=== PATIENT | male | born 1950 | race African-American/Black ===

== ENCOUNTER 2025-03-21 15:47 | Outpatient (AMB) | payer MEDICARE, SELFPAY ==
--- OUTSIDE RECORDS SUMMARY | 2025-02-27 11:30 | XMS_ITS | Encounter Summary ---
Author Organization [facility] Address [address] [place] [address] Care Team Providers Care Pocket Maker Name Role Phone Rodrigo Branch Primary Care Provider [phone] [phone] Reason for Referral * Cardiac Stress Testing (Routine) - Closed Specialty Diagnoses / Procedures Referred By Contac t Referred To Contact Cardiology Diagnoses Ventricular tachycardia (CMS/HCC V24, CMS/HCC V28) Paroxysmal atrial fibrillation (CMS/HCC V24, CMS/HCC V28) Procedures Cardiac holter monitor (<= 48 hours) ND ECG EXTERNAL UP TO 48 HOURS RECORDING ND ECG EXTERNAL < 48 HOURS CONTINUOUS RECORDING/STORAGE R&I BY A PHYS/QHP ND EXTERNAL ECG UP TO 48 HRS INCL RECORDING SCANNING ANLYS W REPORT Vinayak Arredondo MD [address] [address] Phone: tel: fax: [facility] Referral ID Status Reason Start Date Expiration Date Visits Re quested Visits Authorized [id number] Closed 02/27/2025 02/27/2026 1 1 Reason for Visit * Reason Comments EP EVAL PER DR. GARY, AFIB MANAGEMENT * Consultation (Routine) - Authorized Specialty Diagnoses / Procedures Referred By Contac t Referred To Contact Cardiology Diagnoses Hyperparathyroidism (CMS/HCC V24) Obesity (BMI 30.0-34.9) Secondary hypertension Hyperlipidemia, unspecified hyperlipidemia type Type 2 diabetes mellitus with other diabetic kidney complication, with long-term current use of insulin ([facility] V24, [facility] V28) SOB (shortness of breath) Prediabetes Rodrigo Branch PA [address] [place] [address] Phone: tel: fax: [facility] Cardiology [facility] [address] [facility] [address] [place] [address] Phone: tel: fax: Referral ID Status Reason Start Date Expiration Date Visits Requested Visits Authorized [id number] Authorized Specialty Services Required 12/01/2024 11/30/2025 6 6 Encounter Details Date Type Department Care Team (Late st Contact Info) Description 02/27/2025 11:30 AM EDT Consult [facility] Cardiology [facility] [address] [facility] [address] [place] [phone] Vinayak Arredondo MD [address] [place] [address] [place] [phone] Ventricular tachycardia ([facility] V24, [facility] V28) (Primary Dx); Paroxysmal atrial fibrillation ([facility] V24, [facility] V28) Social History Tobacco Use Types Packs/Day Years Used Date Smoking Tobacco: Former Cigarettes 1 - 12/15/2012 Smokeless Tobacco: Never Alcohol Use Standard Drinks/Week Comments Not Currently 0 (1 standard drink = 0.6 oz pur e alcohol) Sex and Gender Information Value Date Recorded Sex Assigned at Male 04/30/2024 5:27 AM EDT Legal Sex Male 12:06 PM EDT Gender Identity Male 04/30/2024 5:27 AM EDT Sexual Orientation Choose not to disclose 2023 5:27 AM EDT documented as of this encounter Last Filed Vital Signs Vital Sign Reading Time Taken Comments Blood Pressure 136/62 02/27/2025 11:05 AM EDT Pulse 62 02/27/2025 11:05 AM EDT Temperature - - Respiratory Rate - - Oxygen Saturation 98% 02/27/2025 11:05 AM EDT Inhaled Oxygen Concentration - - Weight 87.1 kg (192 lb) 02/27/2025 11:05 AM EDT Height 182.9 cm (6') 02/27/2025 11:05 AM EDT Body Mass Index 26.04 02/27/2025 11:05 AM EDT documented in this encounter Ordered Prescriptions Prescription Sig Dispense Quantity Refills Last Filled Start Date End Date metoprolol succinate (TOPROL-XL) 50 mg 24 hr tablet Take 1 tablet (50 mg total) by mouth 1 (one) time each day. Do not crush or chew. 90 each 3 02/27/2025 documented in this encounter Progress Notes * Vinayak Arredondo MD - 02/27/2025 11:30 AM EDT Dear ELISEO Vargas: Thank you for requesting cardiology consultation on your patient, Vinayak Rand. As you know, this delightful 74-year-old gentleman with a history of paroxysmal atrial fibrillation hypertension and hyperlipidemia. He had episodes that were suggestive of seizure-like activity and he had a recentinpatient workup which was unrevealing. He had a 24-hour Holter monitor that demonstrated a run of wide-complex arrhythmia consistent with outflow tract VT that was rather long but self terminating. An echocardiogram was just completed that shows mild concentric LVH with a normal LVEF. There is no RV dysfunction and no advanced valvular disease. He is on metoprolol at 25 mg daily which she is tole rating well. He is anticoagulated with Eliquis for paroxysmal atrial fibrillation. I do not see anydocumented atrial fibrillation recently. His blood pressures have generally been in the 140s to 150range on lisinopril and metoprolol. He is asymptomatic without any obvious arrhythmia but his cognitive function may preclude the detailed history. Recent electrolyte panel was unremarkable. He does have renal dysfunction with a creatinine of 2.14. LFTs are normal. PAST MEDICAL HISTORY: Patient Active Problem List Diagnosis Date Noted Atrial fibrillation with RVR (CMS/HCC V24, CMS/HCC V28) 02/22/2025 Left ventricular hypertrophy 02/22/2025 Cognitive impairment 10/20/2023 Partial seizure ([facility] V24, [facility] V28) 10/20/2023 Unintended weight loss 10/20/2023 Pulse irregularity 04/20/2023 Bilateral renal cysts 12/22/2022 Vitamin B12 deficiency 12/03/2022 Hyperparathyroidism ([facility] V24) 06/23/2016 Microalbuminuria 03/23/2014 Type II diabetes mellitus with renal manifestations ([facility] V24, [facility] V28) 03/23/2014 Late effect of stroke 11/26/2012 Obesity (BMI 30.0-34.9) 01/03/2010 Hyperlipidemia 07/11/2005 Hypertension 07/11/2005 FAMILY HISTORY: No premature coronary disease or arrhythmic events F2 SOCIAL HISTORY: Social History Tobacco Use Smoking status: Former Current packs/day: 0.00 Types: Cigarettes Start date: 1970 Quit date: 12/15/2012 Years since quittin.2 Smokeless tobacco: Never Substance Use Topics Alcohol use: Not Currently ACTIVE MEDICATIONS: Outpatient Medications Marked as Taking for the 02/27/25 encounter (Consult) with Vinayak Arredondo MD Medication Sig Dispense Refill apixaban (ELIQUIS) 5 mg tablet Take 1 tablet (5 mg total) by mouth 2 (two) times a day. Take 5 mg by mouth 2 times daily. - Oral 180 tablet 3 aspirin 81 mg EC tablet Take by mouth. aspirin-dipyridamole (AGGRENOX) 25-200 mg per 12 hr capsule Take 1 capsule by mouth 2 (two) times aday. 180 capsule 3 atorvastatin (LIPITOR) 40 mg tablet Take 1 tablet (40 mg total) by mouth at bedtime. Take 1 Tablet by mouth daily. 90 tablet 3 citalopram (CeleXA) 10 mg tablet Take 1 tablet (10 mg total) by mouth 1 (one) time each day. 90 each 1 coenzyme Q-10 100 mg capsule Take 1 capsule (100 mg total) by mouth 1 (one) time each day. 90 capsule 3 cyanocobalamin (VITAMIN B-12) 1,000 mcg tablet Take 1 tablet (1,000 mcg total) by mouth 1 (one) time each day. Take 1 Tablet by mouth daily. 90 tablet 3 divalproex (DEPAKOTE ER) 250 mg 24 hr tablet Take 3 tablets (750 mg total) by mouth 1 (one) time each day in the evening. 270 tablet 3 insulin glargine,hum.rec.anlog (Basaglar KwikPen U-100 Insulin) 100 unit/mL (3 mL) injection pen Inject 29 Units under the skin at bedtime. 8.7 mL 11 lisinopril (PRINIVIL,ZESTRIL) 40 mg tablet Take 1 tablet (40 mg total) by mouth 1 (one) time each day. Take 1 Tablet by mouth daily. 90 tablet 3 metFORMIN XR (GLUCOPHAGE-XR) 500 mg 24 hr tablet Take 1 tablet (500 mg total) by mouth 2 (two) times a day. pantoprazole (PROTONIX) 40 mg EC tablet Take 1 tablet (40 mg total) by mouth 1 (one) time each day before breakfast. Take 1 Tablet by mouth daily. 90 tablet 3 [DISCONTINUED] metoprolol succinate (TOPROL-XL) 25 mg 24 hr tablet Take 1 tablet (25 mg total) by mouth 1 (one) time each day. Do not crush or chew. 30 each 11 ALLERGIES: No Known Allergies PHYSICAL EXAM: Vitals: 02/27/25 1105 BP: 136/62 Pulse: 62 SpO2: 98% Weight: 87.1 kg (192 lb) Height: 1.829 m (72 ) APPEARANCE: Alert and in no acute distress EYES: PERRL, conjunctiva and sclera normal NECK: Neck supple, 2+ carotid pulses, No bruits. HEART: RRR with normal S1 and S2, no murmurs, no gallops, no JVD appreciated LUNG: clear to auscultation ABDOMEN: Bowel sounds normoactive, no bruits, soft, non-tender, without organomegaly or palpable masses, no abdominal bruits EXTREMITIES: Extremities warm and well perfused without clubbing, cyanosis, or edema NEURO: Awake, alert and oriented x 3, Cranial nerves II-XII grossly intact SKIN: Skin color, texture, turgor normal. No rashes or lesions. PSYCH: Mood and affect are appopriate. MSK: Moves all extremities TESTING: Echocardiogram and Holter monitor reviewed Lab Results Component Value Date CHOL 99 01/09/2025 LDL 79 07/28/2023 HDL 44 01/09/2025 TRIG 54 01/09/2025 Lab Results Component Value Date NA 142 01/09/2025 K 4.2 01/09/2025 CO2 27 01/09/2025 CL 110 01/09/2025 BUN 32 (H) 01/09/2025 Lab Results Component Value Date WBC 10.4 01/09/2025 HGB 12.2 (L) 01/09/2025 HCT 38.3 (L) 01/09/2025 MCV 99.2 (H) 01/09/2025 ASSESSMENT/PLAN: Problem List Items Addressed This Visit None Visit Diagnoses Ventricular tachycardia (CMS/HCC V24, CMS/HCC V28) - Primary Relevant Medications metoprolol succinate (TOPROL-XL) 50 mg 24 hr tablet Other Relevant Orders Cardiac holter monitor (<= 48 hours) (Completed) Paroxysmal atrial fibrillation (CMS/HCC V24, CMS/HCC V28) Relevant Medications metoprolol succinate (TOPROL-XL) 50 mg 24 hr tablet Other Relevant Orders Cardiac holter monitor (<= 48 hours) (Completed) Orders Placed This Encounter Procedures Cardiac holter monitor (<= 48 hours) 1. Ventricular tachycardia 2. Paroxysmal atrial fibrillation 3. Primary hypertension This 74-year-old gentleman demonstrated an episode of likely outflow tract ventricular tachycardia on his Holter monitor. This appears to be asymptomatic although it is always hard to tell given his cognitive state. I am reassured by the very benign baseline ECG and the recent echocardiogram showing no significant structural heart disease. This would generally make a life- threatening ventricular arrhythmia very unlikely. I went through the possible treatments and monitoring avenues but would like to increase the metoprolol to 50 mg daily and repeat the Holter monitor. I would be comfortable with treating this with a beta-dory as they are often effective for outflow tract VT. We could always place an implantable loop recorder if we want to be more aggressive at monitoring or try an antiarrhythmic drug such as sotalol but this would require an inpatient period of my monitoring and I would like to reserve that for any evidence of symptomatic arrhythmia. Thank you for requesting cardiology consultation on this interesting patient. Sincerely, cc: Rodrigo Branch PA documented in this encounter Plan of Treatment Upcoming Encounters Date Type Department Care Team (Late st Contact Info) Description 04/26/2025 11:00 AM EDT Office Visit Adult [address] [phone] Rodrigo Branch PA [address] [place] [phone] 04/28/2025 11:00 AM EDT Office Visit [address] [phone] Monica Aburto PA [address] [place], [place] 09/20/2025 1:00 PM EDT Office Visit Nephrology - [address] [phone] Sd Nash MD [facility] [address] [place] [address] documented as of this encounter Results * CARDIAC HOLTER MONITOR (REPORT GENERATED IN HOUSE) (03/16/2025 9:22 AM EDT) Anatomical Region Laterality Modality Cardiac Diagnost ic Narrative 03/20/2025 2:53 PM EDT [facility] DI[facility]STIC [facility]ING DEPARTMENT [address] [facility], [id number], [place] [address] TEL: FAX: Type of test: 24 hour Holter Monitor Date of test: 03/16/25 Ordering provider: Vinayak Arredondo MD Reason for Test: Paroxysmal Atrial Fibrillation, [place] [facility] Senior Technical Trainer Findings: 1: Normal Sinus Rhythm with Sinus Bradycardia. 2: Heart rate range was 47- 96 bpm with an average of 60 bpm. Total time in Sinus Bradycardia was 15 hrs 59 mins. 3: Frequent PACs with occasional atrial pairs and atrial bi/trigeminy. Occasional PVCs with rare couplets. 4: No pauses noted. Longest R-R 1.7 sec. 5: Diary returned with no symptoms noted. 6: No Atrial Fibrillation noted. Impression: Normal sinus rhythm with an average heart rate of 60 bpm. Frequent premature atrial complexes with a atrial ectopic burden between 7 and 8%. Rare PVCs and no runs of ventricular tachycardia. No atrial fibrillation seen. us Vinayak Arredondo MD CV CARDIAC SERVICES PROCEDURES Final Result documented in this encounter Visit Diagnoses Diagnosis Ventricular tachycardia (CMS/HCC V24, CMS/HCC V28)- Primary Paroxysmal ventricular tachycardia Paroxysmal atrial fibrillation (CMS/HCC V24, CMS/HCC V28) Atrial fibrillation Ventricular tachycardia (CMS/HCC V24, CMS/HCC V28) Paroxysmal ventricular tachycardia Paroxysmal atrial fibrillation (CMS/HCC V24, CMS/HCC V28) Atrial fibrillation documented in this encounter Discontinued Medications Medication Sig Discontinue Reason Start Date End Da te sildenafiL (VIAGRA) 100 mg tablet Take one hour prior to intercourse. Maximum of one tab a day. Discontinued by another clinician 02/27/2025 varenicline (CHANTIX) 0.5 mg tablet Take 1 tablet (0.5 mg total) by mouth 2 (two) times a day. 05/03/2024 02/27/2025 insulin glargine (Lantus Solostar U-100 Insulin) 100 unit/mL (3 mL) injection pen Inject 29 Units under the skin at bedtime. Inject 29 Units into the skin every evening. Discontinued by another clinician 05/25/2024 02/27/2025 metoprolol succinate (TOPROL-XL) 25 mg 24 hr tablet Take 1 tablet (25 mg total) by mouth 1 (one) time each day. Do not crush or chew. Alternate therapy 01/26/2025 02/27/2025 documented as of this encounter Orders Outpatient Referral Count Last Ordered Date Fir st Ordered Date AMB REFERRAL TO CARDIAC ELECTROPHYSIOLOGY 1 02/27/2025 documented in this encounter Additional Health Concerns Assessment Noted Time PHQ-9 Depression Total Score: 0 05/25/20 7:03 AM EST A fall risk assessment has been complete d for the patient 11/16/2024 9:34 AM EDT documented as of this encounter Care Teams Pocket Maker Relationship Specialty Start Date End Date Rodrigo Branch PA [address] [place] [address] PCP - General Internal Medicine 11/23/20 documented as of this encounter
--- OUTSIDE RECORDS SUMMARY | 2025-03-16 09:30 | XMS_ITS | Encounter Summary ---
Author Organization [facility] Address [address] [place] [address] Care Team Providers Care Envelope Machine Adjuster Name Role Phone Rodrigo Branch Primary Care Provider [phone] [phone] Reason for Visit * Reason Comments 24 Hour Holter Monitor * Cardiac Stress Testing (Routine) - Closed Specialty Diagnoses / Procedures Referred By Contac t Referred To Contact Cardiology Diagnoses Ventricular tachycardia (CMS/HCC V24, CMS/HCC V28) Paroxysmal atrial fibrillation (CMS/HCC V24, CMS/HCC V28) Procedures Cardiac holter monitor (<= 48 hours) MA ECG EXTERNAL UP TO 48 HOURS RECORDING MA ECG EXTERNAL < 48 HOURS CONTINUOUS RECORDING/STORAGE R&I BY A PHYS/QHP MA EXTERNAL ECG UP TO 48 HRS INCL RECORDING SCANNING ANLYS W REPORT Vinayak Arredondo MD [address] [place] [address] Phone: tel: fax: [facility] Referral ID Status Reason Start Date Expiration Date Visits Re quested Visits Authorized [id number] Closed 02/27/2025 02/27/2026 1 1 Encounter Details Date Type Department Care Team (Latest Contact Info) Description 03/16/2025 9:30 AM EDT Ancillary Procedure [facility] [address] [place] [phone] Ventricular tachycardia (CMS/HCC V24, CMS/HCC V28); Paroxysmal atrial fibrillation (CMS/HCC V24, CMS/HCC V28) Social History Tobacco Use Types Packs/Day [...] AM EDT documented as of this encounter Plan of Treatment Upcoming Encounters Date Type Department Care Team (Late st Contact Info) Description 04/26/2025 11:00 AM EDT Office Visit Adult Medicine [address] [phone] Rodrigo Branch PA [address] [place] [phone] 04/28/2025 11:00 AM EDT Office Visit Adult Medicine [address] [phone] Monica Aburto PA [address] [place] [address] 09/20/2025 1:00 PM EDT Office Visit Nephrology [address] [phone] Sd Nash MD [address] [phone] documented as of this encounter Procedures Procedure Name Priority Date/Time Associated Diagnosis Comments CARDIAC HOLTER MONITOR (REPORT GENERATED IN HOUSE) Routine 03/16/2025 9:22 AM EDT Ventricular tachycardia (CMS/HCC V24, CMS/HCC V28) Paroxysmal atrial fibrillation (CMS/HCC V24, CMS/HCC V28) documented in this encounter Results * CARDIAC HOLTER MONITOR (REPORT GENERATED IN HOUSE) (03/16/2025 9:22 AM EDT) Anatomical Region Laterality Modality Cardiac Diagnost ic Narrative 03/20/2025 2:53 PM EDT [facility] DI[facility]ING DEPARTMENT [address] [place] [address], [place] [address] TEL: FAX: Type of test: 24 hour Holter Monitor Date of test: 03/16/25 Ordering provider: Vinayak Arredondo MD Reason for Test: Paroxysmal Atrial Fibrillation, VT [facility] Raw Shellfish Preparer Findings: 1: Normal Sinus Rhythm with Sinus [...] of ventricular tachycardia. No atrial fibrillation seen. Vinayak Arredondo MD CV CARDIAC SERVICES PROCEDURES Final Result documented in this encounter Visit Diagnoses Diagnosis Ventricular tachycardia (CMS/HCC V24, CMS/HCC V28) Paroxysmal ventricular tachycardia Paroxysmal atrial fibrillation (CMS/HCC V24, CMS/HCC V28) Atrial fibrillation documented in this encounter Additional Health Concerns Assessment Noted Time PHQ-9 Depression Total Score: 0 05/25/20 24 7:03 AM EST A fall risk assessment has been complete d for the patient 11/16/2024 9:34 AM EDT documented as of this encounter Care Teams Envelope Machine Adjuster Relationship Specialty Start Date End Date Rodrigo Branch PA [address] [place] [address] PCP - General Internal Medicine 11/23/20 documented as of this encounter
--- NOTE | 2025-03-21 15:58 | A.OFFVIS_ITS ---
Intake Visit Reasons: ENP: Cognitive Impairment Allergies No Known Allergies Allergy (Verified 03/15/25 08:37) HPI Comments Details: The patient is a 74-year-old male with hypertension, paroxysmal atrial fibrillation on Eliquis, and probably multiple ischemic infarct resulting in vascular dementia. More recently he developed seizure shaking type episodes and was initially given levetiracetam, which was changed to Depakote.. The onset of seizures was noted early last year with an initial significant event occurring during a shower, leading to hospitalization. He currently is managed on Depakote at 750 mg in the evening. His mobility is characterized by weakness in the right leg, attributed to previous strokes. There is a diagnosis of vascular dementia, which complicates both cognitive function and physical mobility. Medically, he has atrial fibrillation and hypertension, managed with Eliquis, aspirin, and Difadodilol, which has raised concerns regarding the risk of bleeding due to multiple anticoagulants. His had number of questions that were answered. Behavioral symptoms include persistent agitation, which occurs every other day, complicating caregiving efforts. Support includes a visiting nurse to assist in day-to-day activities and hygiene. The patient's previous workup included an inpatient evaluation that was unremarkable, a Holter monitor showed arrhythmias, and echocardiography demonstrated mild left ventricular hypertrophy. [facility] Medical History (Updated 03/21/25 @ 16:24 by Breezy Robbins MD) Vitamin B12 deficiency Type 2 diabetes mellitus Partial seizure Obesity Hypertension Hyperparathyroidism HLD (hyperlipidemia) Cognitive impairment Bilateral renal cysts Atrial fibrillation with RVR Review of Systems Const Details: - Neurological: Reports increased seizures; denies vision changes. - Musculoskeletal: Reports labored walking and right leg weakness. - Cardiovascular: Reports atrial fibrillation; denies chest pain or palpitations. - Psychiatric: Reports agitation and mood changes; denies hallucinations. - Gastrointestinal: Reports diarrhea; denies abdominal pain. - General: Reports episodes of stiffness, especially post-shower. Physical Exam Neuro Other: He was alert and awake mostly keeping quite but would answer questions in yes or no. He frequently got irritated or agitated. There was mild left-sided central facial weakness. He was in a wheelchair. He was able to use his arms and hands. Assessment & Plan Assessment & Plan (1) Vascular dementia: Code(s): F01.50 - Vascular dementia, unspecified severity, without behavioral disturbance, psychotic disturbance, mood disturbance, and anxiety Category: Medical Qualifiers: Dementia severity: severe Dementia behavioral or psychological symptom: with other behavioral disturbance Qualified Code(s): F01.C18 - Vascular dementia, severe, with other behavioral disturbance (2) Seizure disorder: Code(s): G40.909 - Epilepsy, unspecified, not intractable, without status epilepticus Category: Medical Plan Impression recommendations: 74 years old man who probably had ischemic strokes resulting in vascular dementia related to atrial fibrillation. His previous re cords and imaging were not available to confirm or corroborate. More recently, he has developed symptoms suggestive of seizure disorder and was taking Depakote 750 mg a day. His was here somewhat not sure why she was sent here. We had a long conversation about her situation and add tried to explain to her different aspect of his illness and management. My recommendation at this time is to try memantine 5 mg twice a day for cognitive/behavioral difficulties. As far as seizure disorder is concerned, Depakote was a reasonable choice, which can also help as a mood stabilizer. His preferred to continue with his previous neurologist in no follow-up appointment was made at this time. Coding Level of Care Code New Pt Level 5 (53695) Diagnoses Severe vascular dementia with other behavioral disturbance F01.C18 Dementia severity: severe Dementia behavioral or psychological symptom: with other behavioral disturbance Seizure disorder G40.909
--- OUTSIDE RECORDS SUMMARY | 2025-03-21 18:56 | XMS_ITS | Encounter Summary ---
Author Organization [facility] Address [address] [place] [address] Care Team Providers Care Associate Professor Plant Pathology Name Role Phone Rodrigo Branch Primary Care Provider [phone] Reason for Visit * Reason Onset Date Comments Fitting for DME 03/17/2025 Boost + Briefs Encounter Details Date Type Department Care Team (Late st Contact Info) Description 03/17/2025 Telephone Adult Medicine [address] [phone] Rodrigo Branch PA [address] [place] [address] [phone] Social History Tobacco Use Types Packs/Day Years [...] AM EDT documented as of this encounter Progress Notes * Robinson Amezcua - 03/17/2025 1:43 PM EDT DME REQUEST Name of Product: Vanilla boost Briefs Reason patient is asking for this supply? Mixed incontinence When completed: Fax to other office/MD/pharmacy at fax # [phone] Who is requested? Toño Is this a fax request?yes Have you told the patient it will take 7-10 days for completion of this request? No documented in this encounter Plan of Treatment Upcoming Encounters Date Type Department Care Team (Late st Contact Info) Description 04/26/2025 11:00 AM EDT Office Visit Adult Medicine [address] [phone] Rodrigo Branch PA [address] [place] [phone] 04/28/2025 11:00 AM EDT Office Visit Adult Medicine [address] [phone] Monica Aburto PA [address] [place] [address] 09/20/2025 1:00 PM EDT Office Visit Nephrology - [address] [phone] Sd Nash MD [address] [phone] documented as of this encounter Visit Diagnoses Not on filedocumented in this encounter Additional Health Concerns Assessment Noted Time PHQ-9 Depression Total Score: 0 05/25/20 7:03 AM EST A fall risk assessment has been complete d for the patient 11/16/2024 9:34 AM EDT documented as of this encounter Care Teams Associate Professor Plant Pathology Relationship Specialty Start Date End Date Rodrigo Branch PA [address] [place] [address] PCP - General Internal Medicine 11/23/20 documented as of this encounter
--- OUTSIDE RECORDS SUMMARY | 2025-03-21 18:56 | XMS_ITS | Clinical Summary ---
Author Organization Patient Business Ser [facility] Address [address] [place] [address] Care Team Providers Care Superintendent Marine Name Role Phone Rodrigo Branch Primary Care Provider [phone] Allergies No known active allergies Medications flash glucose scanning reader (FreeStyle [place] 2 [place]) misc 1 Units by Does not apply route as needed for Other (glucose monitoring). Active glucose blood test strip Use to check blood sugar twice daily Active flash glucose sensor (FreeStyle Cortney 2 Sensor) kit 1 Units by Does not apply route every 14 days. Active ONETOUCH DELICA LANCETS MISC Use to test blood sugar 3 times daily 020 Active pen needle, diabetic 31 gauge x 3/16 needle 1 Each by Does not apply route 4 times daily. 023 Active aspirin 81 mg EC tablet Take by mouth. Active glucose blood test strip Use as instructed 100 each 12 024 2024 Active freestyle (FreeStyle Lancets) 28 gauge lancets Use to check blood sugar daily 100 each 12 Active blood-glucose meter kit 1 each if needed (use to check blood sugar daily). 1 each 024 2024 Active blood sugar diagnostic (FreeStyle Lite Strips) test strip Use to check blood sugar daily 100 each 12 Active apixaban (ELIQUIS) 5 mg tablet Take 1 tablet (5 mg total) by mouth 2 (two) times a day. Take 5 mg by mouth 2 times daily. - Oral 180 tablet 3 Active coenzyme Q-10 100 mg capsule Take 1 capsule (100 mg total) by mouth 1 (one) time each day. 90 capsule 3 Active divalproex (DEPAKOTE ER) 250 mg 24 hr tablet Take 3 tablets (750 mg total) by mouth 1 (one) time each day in the evening. 270 tablet 3 024 Active pantoprazole (PROTONIX) 40 mg EC tablet Take 1 tablet (40 mg total) by mouth 1 (one) time each day before breakfast. Take 1 Tablet by mouth daily. 90 tablet 3 024 Active lisinopril (PRINIVIL,ZESTRIL ) 40 mg tablet Take 1 tablet (40 mg total) by mouth 1 (one) time each day. Take 1 Tablet by mouth daily. 90 tablet 3 025 Active cyanocobalamin (VITAMIN B-12) 1,000 mcg tablet Take 1 tablet (1,000 mcg total) by mouth 1 (one) time each day. Take 1 Tablet by mouth daily. 90 tablet 3 025 Active citalopram (CeleXA) 10 mg tabletIndications :Hyperparathyroid ism ([facility] V24),Obesity (BMI 30.0-34.9),Second bridgette hypertension,Hype rlipidemia, unspecified hyperlipidemia type,Type 2 diabetes mellitus with other diabetic kidney complication, with long-term current use of insulin ([facility] V24, [facility] V28),SOB (shortness of breath),Prediabet es Take 1 tablet (10 mg total) by mouth 1 (one) time each day. 90 each 1 025 Active aspirin-dipyridam ole (AGGRENOX) 25-200 mg per 12 hr capsule Take 1 capsule by mouth 2 (two) times a day. 180 capsule 3 025 Active metFORMIN XR (GLUCOPHAGE-XR) 500 mg 24 hr tablet Take 1 tablet (500 mg total) by mouth 2 (two) times a day. Active atorvastatin (LIPITOR) 40 mg tablet Take 1 tablet (40 mg total) by mouth at bedtime. Take 1 Tablet by mouth daily. 90 tablet 3 Active insulin glargine,hum.rec. anlog (Basaglar KwikPen U-100 Insulin) 100 unit/mL (3 mL) injection pen Inject 29 Units under the skin at bedtime. 8.7 mL 11 2025 Active metoprolol succinate (TOPROL-XL) 50 mg 24 hr tablet Take 1 tablet (50 mg total) by mouth 1 (one) time each day. Do not crush or chew. 90 each 3 Active sildenafiL (VIAGRA) 100 mg tablet Take one hour prior to intercourse. Maximum of one tab a day. 2024 Discontinued(D iscontinued by another clinician) varenicline (CHANTIX) 0.5 mg tablet Take 1 tablet (0.5 mg total) by mouth 2 (two) times a day. 024 2024 Discontinued insulin glargine (Lantus Solostar U-100 Insulin) 100 unit/mL (3 mL) injection pen Inject 29 Units under the skin at bedtime. Inject 29 Units into the skin every evening. 15 mL 11 024 2024 Discontinued(D iscontinued by another clinician) metoprolol succinate (TOPROL-XL) 25 mg 24 hr tablet Take 1 tablet (25 mg total) by mouth 1 (one) time each day. Do not crush or chew. 30 each 025 2024 Discontinued(A lternate therapy) Active Problems Problem Noted Date Diagnosed Date Atrial fibrillation with RVR (CMS/HCC V24, CMS/H CC V28) 02/22/2025 Left ventricular hypertrophy 02/22/2025 Cognitive impairment 10/20/2023 Partial seizure (CMS/HCC V24, CMS/HCC V28) 10/19 Unintended weight loss 10/20/2023 Pulse irregularity 04/20/2023 Bilateral renal cysts 12/22/2022 Vitamin B12 deficiency 12/03/2022 Hyperparathyroidism (CMS/HCC V24) 06/23/2016 Microalbuminuria 03/23/2014 Type II diabetes mellitus wi th renal manifestations ([facility] V24, [facility]/HCC V28) 03/23/2014 Late effect of stroke 11/26/2012 Overview (04/14/2024): Right hemiparesis with left visual field loss Obesity (BMI 30.0-34.9) 01/03/2010 Hyperlipidemia 07/11/2005 Hypertension 07/11/2005 Resolved Problems Problem Noted Date Diagnosed Date Resolved Date Stage 3a chronic kidney dise ase ([facility] V24, CMS/[facility] V28) 08/24/2020 09/07/2024 Encounters Date Type Department Care Team Description 03/17/2025 Telephone Adult Medicine [id number] [place], [place] [phone] Rodrigo Branch, PA 03/16/2025 9:30 AM EDT Ancillary Procedure [facility] Cardiology [facility] [address] [facility] [address] [place] [id number] Ventricular tachycardia ([facility]/HCC V24, CMS/HCC V28); Paroxysmal atrial fibrillation ([facility]/HCC V24, CMS/HCC V28) 03/08/2025 Telephone Adult Medicine [address] [phone] Rodrigo Branch, PA 02/27/2025 11:30 AM EDT Consult [facility] Cardiology [facility] [address] [facility] [address] [place] [address] Yobany Arredondo MD Ventricular tachycardia ([facility] V24, [facility]/HCC V28) (Primary Dx); Paroxysmal atrial fibrillation ([facility]/HCC V24, CMS/HCC V28) 02/03/2025 Telephone Adult Medicine [address] [phone] Rodrigo Branch, PA 01/30/2025 Telephone [facility] Cardiology [facility] [address] [place] [phone] Marine Mann MD 01/27/2025 11:00 AM EDT Ancillary Procedure [facility] Cardiology [facility] [address] [place] [address] Hyperparathyroidism ([facility]/HCC V24); Obesity (BMI 30.0-34.9); Secondary hypertension; Hyperlipidemia, unspecified hyperlipidemia type; Type 2 diabetes mellitus with other diabetic kidney complication, with long-term current use of insulin (CMS/HCC V24, CMS/HCC V28); SOB (shortness of breath); Prediabetes 01/26/2025 Telephone [facility] Cardiology [facility] [address] [place] [address] Marine Mann MD 01/25/2025 9:00 AM EDT Ancillary Procedure [facility] Cardiology [facility] [address] [place] [address] Hyperparathyroidism ([facility]/HCC V24); Cognitive impairment; Hyperlipidemia, unspecified hyperlipidemia type; Secondary hypertension; Late effect of stroke; Microalbuminuria; Type 2 diabetes mellitus with other diabetic kidney complication, with long-term current use of insulin (CMS/HCC V24, CMS/HCC V28); Partial seizure (CMS/HCC V24, CMS/HCC V28); Vitamin B12 deficiency; Palpitation 01/11/2025 10:19 AM EDT - 01/11/2025 11:59 PM EDT Hospital Encounter CT Scan [address] [phone] Hyperparathyroidism ([facility]/HCC V24); Cognitive impairment; Hyperlipidemia, unspecified hyperlipidemia type; Secondary hypertension; Late effect of stroke; Microalbuminuria; Type 2 diabetes mellitus with other diabetic kidney complication, with long-term current use of insulin (CMS/HCC V24, CMS/HCC V28); Partial seizure (CMS/HCC V24, CMS/HCC V28); Vitamin B12 deficiency; Palpitation; New onset headache Discharge Disposition: Home or Self Care 01/09/2025 11:00 AM EDT Office Visit Adult Medicine [address] [phone] Rodrigo Branch, PA Type 2 diabetes mellitus with other diabetic kidney complication, with long-term current use of insulin ([facility] V24, [facility] V28) (Primary Dx); Hyperparathyroidism ([facility] V24); Cognitive impairment; Hyperlipidemia, unspecified hyperlipidemia type; Secondary hypertension; Late effect of stroke; Microalbuminuria; Partial seizure (CMS/HCC V24, [facility] V28); Vitamin B12 deficiency; Palpitation; New onset headache; Mixed incontinence 12/26/2024 Telephone Adult Medicine [address] [phone] Rodrigo Branch PA 12/22/2024 Telephone Adult Medicine [address] [phone] Rodrigo Branch PA from Last 3 Months Immunizations Name Administration Dates Next Due H1N1 Inj Preservative Free 06/28/2009 Influenza trivalent, 0.5mL ( Fluad) 65yo and older 05/25/2024 Influenza trivalent, 0.5mL ( Fluzone High-dose) 65yo and older 04/08/2023,04/18/2019,03/22/2018,05/30 Influenza trivalent, with pr eservative (Fluzone; Afluria) 6mo and older 06/20/2016,04/11/2015,03/25/2013,03/31,03/20/2011,06/28/2009,05/17/2008 ,2005 Influenza, Unspecified 05/30/2017 Moderna Covid-19 Bivalent, O riginal + Ba.1 (Non-US Tradename Spikevax Bivalent) 08/02/2022 Pneumococcal conjugate 13 va lent (Prevnar 13, PCV13) 2mo and older 11/16/2017 Pneumococcal polysaccharide 23 valent (Pneumovax 23) 2yo and older 04/18/2019,2005 RSV, bivalent, protein subun it RSVpreF, 0.5mL, Preservative Free (ABRYSVO) 60yo and older or 32 through 36 wks of 09/26/2023 Td Tetanus diptheria (Tdvax) 7yo and older 07/22/2018 Tdap Tetanus diptheria acell ular pertussis (Boostrix; Adacel) 7yo and older 06/27/2008 Zoster recombinant (Shingrix ) 19yo and older 09/26/2023 Surgical History Surgery Date Site/Laterality Comments OTHER SURGICAL HISTORY PROCEDURE: DENIES PREVIOUS SURGERY COLONOSCOPY Apr 2015 PROCEDURE: HISTORICAL COLONOSCOPY; COMMENT: Polyps and hemorrhoids MULTIPLE TOOTH EXTRACTIONS PROCEDURE: HISTORICAL DENTAL EXTRACTION Medical History Medical History Date Comments Type II or unspecified type diabetes mellitus without mention of complication, not stated as uncontrolled 07/11/2005 DX:Type II or unspecified ty pe diabetes mellitus without mention of complication, not stated as uncontrolled Essential hypertension, benign 07/11/2005 D X:Essential hypertension, benign Other and unspecified hyperlipidemia 07/11/2005 DX:Other and unspecified hyperlipidemia Obesity, unspecified 01/03/2010 DX:Obesity, unspecified Type 2 diabetes mellitus, co ntrolled, with renal complications ([facility] V24, [facility] V28) 03/23/2014 DX:Type 2 diabetes mellitus, controlled, with renal complications ([facility]) Hypertension 07/11/2005 DX:Hypertension Nausea DX:Nausea Functional dyspepsia DX:Function al dyspepsia Cerebrovascular disease DX:Cereb rovascular disease Seizure ([facility] V24, [facility] V28) Stroke (cerebrum) ([facility] V 24, [facility] V28) Dementia ([facility] V24, [facility] V28) Diarrhea Difficulty walking Fever Family History Relation Name Status Comments Father adopted Mother Other adopted Social History Tobacco Use Types Packs/Day Years Used Date Smoking Tobacco: Former Cigarettes 1 - 12/15/2012 Smokeless Tobacco: Never Tobacco Cessation:Counseling Given: Not Answered Alcohol Use Standard Drinks/Week Comments Not Currently 0 (1 standard drink = 0.6 oz pur e alcohol) Sex and Gender Information Value Date Recorded Sex Assigned at Male 04/30/2024 5:27 AM EDT Legal Sex Male 12:06 PM EDT Gender Identity Male 04/30/2024 5:27 AM EDT Sexual Orientation Choose not to disclose 2023 5:27 AM EDT Obstetrics History Last Filed Vital Signs Vital Sign Reading Time Taken Comments Blood Pressure 136/62 02/27/2025 11:05 AM EDT Pulse 62 02/27/2025 11:05 AM EDT Temperature 36.7 C (98.1 F) 01/09/2025 11:14 AM EDT Respiratory Rate 15 01/09/2025 11:14 AM EDT Oxygen Saturation 98% 02/27/2025 11:05 AM EDT Inhaled Oxygen Concentration - - Weight 87.1 kg (192 lb) 02/27/2025 11:05 AM EDT Height 182.9 cm (6') 02/27/2025 11:05 AM EDT Body Mass Index 26.04 02/27/2025 11:05 AM EDT Plan of Treatment Upcoming Encounters Date Type Department Care Team (Late st Contact Info) Description 04/26/2025 11:00 AM EDT Office Visit Adult Medicine [address] [phone] Rodrigo Branch PA [address] [place] [phone] 04/28/2025 11:00 AM EDT Office Visit Adult Medicine [address] [phone] Monica Aburto PA [address] [place] [address] 09/20/2025 1:00 PM EDT Office Visit Nephrology - [address] [phone] Sd Nash MD [address] [phone] Health Maintenance Due Date Last Done Comments Medicare Annual Wellness Visit 03/26/2022 Social Influencers of Health Screening 03/26/2022 Zoster Vaccines (2 of 2) 11/21/2023 09/26/2023 Depression Screening 07/06/2024 05/25/2024, 10/20/19 24 COVID-19 Vaccine ( season) 2025 09/26/2023, 08/02/2022, 05/09/2021, Additional history exists Influenza Vaccine (#1) 2025 , 04/08/2023, 04/18/2019, Additional history exists Diabetes: Annual Foot Exam 05/10/2025 05/10/2024, Diabetes: Blood Sugar Control Test (HGBA1C) 07/12/2025 01/09/2025, 09/22/2024, 05/25/2024, Additional history exists Falls Risk Assessment 11/16/2025 11/16/2024, 024 Diabetes: Annual Urine Albumin-Creatinine Ratio (uACR) 01/09/2026 01/09/2025, 09/22/2024, 05/25/2024, Additional history exists Diabetes: Annual GFR (Glomerular Filtration Rate) 01/09/2026 01/09/2025, 09/22/2024, 05/25/2024, Additional history exists Hypertension/CHF/CAD Annual BMP Blood Test 01/09/2026 01/09/2025, 09/22/2024, 05/25/2024, Additional history exists Diabetes: Annual Retina Eye Exam 01/10/2026 01/10/2025, 01/09/2025, 09/28/2023 DTaP,Tdap,and Td Vaccines (3 - Td or Tdap) 07/22/2028 07/22/2018, 06/27/2008 Colorectal Cancer Screening: Colonoscopy 09/19/2029 09/20/2019 Cholesterol Screening (Lipid Panel) 01/09/2030 01/09/2025, 09/22/2024, 05/25/2024, Additional history exists Hepatitis C Screening Completed 01/04/2014 Pneumococcal Vaccine: 50+ Years Completed 04/18/2019, 11/16/2017, 2005 RSV Immunization Adult Patients Completed 09/26/2023 Abdominal Aortic Aneurysm (AAA) Screen Addressed 12/23/2023 Overridden with the intention of not completing the topic HIB Vaccines Aged Out No longer eligi ble based on patient's age to complete this topic HPV Vaccines Aged Out No longer eligi ble based on patient's age to complete this topic Hepatitis A Vaccines Aged Out No long er eligible based on patient's age to complete this topic Hepatitis B Vaccines Aged Out No long er eligible based on patient's age to complete this topic IPV Vaccines Aged Out No longer eligi ble based on patient's age to complete this topic MMR Vaccines Aged Out No longer eligi ble based on patient's age to complete this topic Meningococcal ACWY Vaccine Aged Out N o longer eligible based on patient's age to complete this topic Meningococcal B Vaccine Aged Out No l onger eligible based on patient's age to complete this topic RSV Immunization Patients Under 20 months Aged Out No longer eligible based on patient's age to complete this topic Varicella Vaccines Aged Out No longer eligible based on patient's age to complete this topic Procedures Procedure Name Priority Date/Time Associated Diagnosis Comments CARDIAC HOLTER MONITOR (REPORT GENERATED IN HOUSE) Routine 03/16/2025 9:22 AM EDT Ventricular tachycardia ([facility] V24, [facility] V28) Paroxysmal atrial fibrillation ([facility] V24, [facility] V28) TRANSTHORACIC ECHOCARDIOGRAM (TTE) COMPLETE Routine 01/27/2025 11:07 AM EDT Hyperparathyroidism ([facility] V24) Obesity (BMI 30.0-34.9) Secondary hypertension Hyperlipidemia, unspecified hyperlipidemia type Type 2 diabetes mellitus with other diabetic kidney complication, with long-term current use of insulin ([facility] V24, [facility] V28) SOB (shortness of breath) Prediabetes CARDIAC HOLTER MONITOR (REPORT GENERATED IN HOUSE) Routine 01/25/2025 9:07 AM EDT Hyperparathyroidism ([facility] V24) Cognitive impairment Hyperlipidemia, unspecified hyperlipidemia type Secondary hypertension Late effect of stroke Microalbuminuria Type 2 diabetes mellitus with other diabetic kidney complication, with long-term current use of insulin ([facility] V24, [facility] V28) Partial seizure ([facility] V24, CMS/HCC V28) Vitamin B12 deficiency Palpitation CT HEAD WO CONTRAST Routine 01/11/2025 1 0:32 AM EDT Hyperparathyroidism ([facility]/HCC V24) Cognitive impairment Hyperlipidemia, unspecified hyperlipidemia type Secondary hypertension Late effect of stroke Microalbuminuria Type 2 diabetes mellitus with other diabetic kidney complication, with long-term current use of insulin ([facility] V24, CMS/HCC V28) Partial seizure ([facility] V24, [facility]/HCC V28) Vitamin B12 deficiency Palpitation New onset headache EXTERNAL DIABETIC RETINA EYE EXAM 01/10/2025 CBC WITH AUTO DIFFERENTIAL Routine 01/09/2025 12:13 PM EDT Hyperparathyroidism ([facility] V24) Cognitive impairment Hyperlipidemia, unspecified hyperlipidemia type Secondary hypertension Late effect of stroke Microalbuminuria Type 2 diabetes mellitus with other diabetic kidney complication, with long-term current use of insulin ([facility] V24, [facility] V28) Partial seizure ([facility] V24, [facility] V28) Vitamin B12 deficiency LIPID PANEL WITH REFLEX TO DIRECT LDL Routine 01/09/2025 12:13 PM EDT Hyperparathyroidism ([facility] V24) Cognitive impairment Hyperlipidemia, unspecified hyperlipidemia type Secondary hypertension Late effect of stroke Microalbuminuria Type 2 diabetes mellitus with other diabetic kidney complication, with long-term current use of insulin ([facility] V24, [facility] V28) Partial seizure ([facility] V24, [facility] V28) Vitamin B12 deficiency MICROALBUMIN CREATININE URINE RATIO Routine 01/09/2025 12:13 PM EDT Hyperparathyroidism ([facility] V24) Cognitive impairment Hyperlipidemia, unspecified hyperlipidemia type Secondary hypertension Late effect of stroke Microalbuminuria Type 2 diabetes mellitus with other diabetic kidney complication, with long-term current use of insulin ([facility] V24, [facility] V28) Partial seizure ([facility] V24, [facility] V28) Vitamin B12 deficiency COMPREHENSIVE METABOLIC PANEL Routine 01/09/2025 12:13 PM EDT Hyperparathyroidism ([facility] V24) Cognitive impairment Hyperlipidemia, unspecified hyperlipidemia type Secondary hypertension Late effect of stroke Microalbuminuria Type 2 diabetes mellitus with other diabetic kidney complication, with long-term current use of insulin ([facility] V24, [facility] V28) Partial seizure ([facility] V24, [facility] V28) Vitamin B12 deficiency HEMOGLOBIN A1C Routine 01/09/2025 12:13 PM EDT Hyperparathyroidism ([facility] V24) Cognitive impairment Hyperlipidemia, unspecified hyperlipidemia type Secondary hypertension Late effect of stroke Microalbuminuria Type 2 diabetes mellitus with other diabetic kidney complication, with long-term current use of insulin ([facility]CC V24, [facility] V28) Partial seizure ([facility] V24, [facility]/HCC V28) Vitamin B12 deficiency PARATHYROID HORMONE INTACT Routine 01/09/2025 12:13 PM EDT Hyperparathyroidism ([facility]/HCC V24) Cognitive impairment Hyperlipidemia, unspecified hyperlipidemia type Secondary hypertension Late effect of stroke Microalbuminuria Type 2 diabetes mellitus with other diabetic kidney complication, with long-term current use of insulin ([facility] V24, [facility] V28) Partial seizure ([facility]/HCC V24, [facility]/HCC V28) Vitamin B12 deficiency VITAMIN B12 Routine 01/09/2025 12:13 PM EDT Hyperparathyroidism ([facility]/HCC V24) Cognitive impairment Hyperlipidemia, unspecified hyperlipidemia type Secondary hypertension Late effect of stroke Microalbuminuria Type 2 diabetes mellitus with other diabetic kidney complication, with long-term current use of insulin ([facility] V24, [facility] V28) Partial seizure ([facility] V24, [facility]/HCC V28) Vitamin B12 deficiency CBC AND DIFFERENTIAL Routine 01/09/2025 12:13 PM EDT Hyperparathyroidism ([facility] V24) Cognitive impairment Hyperlipidemia, unspecified hyperlipidemia type Secondary hypertension Late effect of stroke Microalbuminuria Type 2 diabetes mellitus with other diabetic kidney complication, with long-term current use of insulin ([facility] V24, [facility] V28) Partial seizure ([facility] V24, [facility]/HCC V28) Vitamin B12 deficiency VALPROIC ACID LEVEL, TOTAL Routine 01/09/2025 12:13 PM EDT Hospital discharge follow-up Gait instability Late effect of stroke Partial seizure ([facility]/HCC V24, [facility]/HCC V28) Hyperparathyroidism ([facility]/HCC V24) Secondary hypertension Viral syndrome THYROID STIMULATING HORMONE WITH REFLEX TO FREE T4 AND FREE T3 Routine 01/09/2025 12:13 PM EDT Hyperparathyroidism ([facility]/HCC V24) Cognitive impairment Hyperlipidemia, unspecified hyperlipidemia type Secondary hypertension Late effect of stroke Microalbuminuria Type 2 diabetes mellitus with other diabetic kidney complication, with long-term current use of insulin ([facility] V24, [facility] V28) Partial seizure ([facility] V24, [facility]/HCC V28) Vitamin B12 deficiency CULTURE URINE Routine 01/09/2025 12:13 PM EDT Hyperparathyroidism ([facility] V24) Obesity (BMI 30.0-34.9) Secondary hypertension Hyperlipidemia, unspecified hyperlipidemia type Type 2 diabetes mellitus with other diabetic kidney complication, with long-term current use of insulin ([facility] V24, [facility] V28) SOB (shortness of breath) Prediabetes ECG 12-LEAD TRACING ONLY Routine 01/09/2025 11:56 AM EDT Hyperparathyroidism ([facility] V24) Cognitive impairment Hyperlipidemia, unspecified hyperlipidemia type Secondary hypertension Late effect of stroke Microalbuminuria Type 2 diabetes mellitus with other diabetic kidney complication, with long-term current use of insulin ([facility] V24, [facility] V28) Partial seizure ([facility] V24, [facility] V28) Vitamin B12 deficiency DEPRESSION SCREENING Routine 10/20/2023 FALLS RISK ASSESSMENT Routine 10/20/2023 DIABETES FOOT EXAM Routine 12/03/2022 COLONOSCOPY Routine 09/20/2019 HEPATITIS C SCREENING Routine 01/04/2014 from Last 3 Months or Most Recently Relevant to Health Maintenance Results * CARDIAC HOLTER MONITOR (REPORT GENERATED IN HOUSE) (03/16/2025 9:22 AM EDT) Anatomical Region Laterality Modality Cardiac Diagnost ic Narrative 03/20/2025 2:53 PM EDT [facility] DIAGNOSTIC TESTING DEPARTMENT [address] [place] [address], [address] [address] TEL: FAX: Type of test: 24 hour Holter Monitor Date of test: 03/16/25 Ordering provider: Yobany Arredondo MD Reason for Test: Paroxysmal Atrial Fibrillation, VT PVCA Manager Nuclear Findings: 1: Normal Sinus Rhythm with Sinus [...] ventricular tachycardia. No atrial fibrillation seen. us Yobany Arredondo MD CV CARDIAC SERVICES PROCEDURES Final Result * (ABNORMAL) TRANSTHORACIC ECHOCARDIOGRAM (TTE) COMPLETE (01/27/2025 11:07 AM EDT) Left Atrium Minor [place] 5.7 cm CV PACS Left Atrium Major [place] 6.1 cm CV PACS LA Area Sys (A2C) 24 cm2 CV PACS LA Area Sys (A4C) 24 cm2 CV PACS LA Volume (BP) 84 mL CV PACS RA Area 15.1 cm2 CV PACS RA 2D Volume 41 mL CV PACS AV Mean Gradient 5 mmHg CV PACS Ao VTI 30.5 cm CV PACS AV Peak Memo 1.5 m/s CV PACS AV Peak Gradient 9 mmHg CV PACS AV Area Continuity Equation 2.7 cm2 CV PACS AV Area Peak Velocity 3.1 cm2 CV PACS Aortic Sinus Valsalva 4.0 cm CV PACS Ascending Aorta 3.8 cm CV PACS IVC Proximal 1.1 cm CV PACS IVSD 1.2(A) 0.6 - 1.0 cm CV PACS LVIDD 5.2 4.2 - 5.8 cm CV PACS LVIDS 2.9 2.5 - 4.0 cm CV PACS LVOT Diameter 2.4 cm CV PACS LVOT Mean Grad 2 mmHg CV PACS LVOT Peak VTI 18.4 cm CV PACS LVOT Mean Memo 0.6 m/s CV PACS LVOT Peak Memo 1.0 m/s CV PACS LVOT Peak Gradient 4 mmHg CV PACS LVPWD 1.3(A) 0.6 - 1.0 cm CV PACS MV E' Tissue Velocity Lateral 6 cm/s CV PACS MV E' Tissue Velocity Septal 5 cm/s CV PACS LVOT Area 4.5 cm2 CV PACS LVOT Stroke Volume 83 mL CV PACS E Wave Deceleration Time 303(A) 119 - 242 ms CV PACS MV Peak A Memo 0.80 m/s CV PACS MV Peak E Memo 0.50 m/s CV PACS PV Acceleration Time 120 ms CV PACS PV Acceleration Time 120 ms CV PACS RV Diastolic Basal Dimension 3.2 2.5 - 4.1 cm CV PACS RV S' 14 cm/s CV PACS TAPSE 23 mm CV PACS E/E' Ratio Septal 10 CV PACS E/E' Ratio Averaged 9 CV PACS Relative Wall Thickness ratio 0.50(A) 0.24 - 0.42 CV PACS LVOT:AV VTI Index 0.60 CV PACS FS 44 % CV PACS LV Mass 2D 271(A) 96 - 200 g CV PACS LVOT flow 271 mL/s CV PACS AV Velocity Ratio 0.69 CV PACS E/A Ratio 0.6 0.8 - 2.0 CV PACS E/E' Ratio Lateral 8 CV PACS BSA 2.08 m2 CV PACS LA Volume Index (BP) 40 mL/m2 CV PACS LVIDD Index 2.50 cm/m2 CV PACS LVIDS Index 1.39 cm/m2 CV PACS LV Mass Index 2D 127(A) 50 - 102 g/m2 CV PACS LVOT Stroke Index 0 mL/m2 CV PACS RA 2D Volume Index 20 18 - 32 mL/m2 CV PACS ANDERSON Index (VTI) 1.31 cm2/m2 CV PACS ANDERSON Index (Pk Memo) 1.49 cm2/m2 CV PACS Ascending Aorta Index 1.83 cm/m2 CV PACS Est. RA Pressure 3 mmHg CV PACS LVOT Cardiac Output 0.0 L/min CV PACS LVOT Cardiac Index 2.6 L/min/m2 CV PACS RV Free Wall Peak S' 14 cm/s CV PACS RA Major [place] 4.7 cm CV PACS RA Major [place] Index 2.3 2.1 - 2.7 cm/m2 CV PACS MV PHT 88 ms CV PACS AV Area 2D 3.1 cm2 CV PACS ANDERSON Index (2D) 1.49 cm2/m2 CV PACS Inferior Vena Cava Diameter At Expiration 1.1 cm CV PACS IVC Expiration Index 0.53 cm/m2 CV PACS AV Area Index 1.5 CV PACS Anatomical Region Laterality Modality Ultrasound Narrative 02/02/2025 5:31 PM EDT Left ventricle cavity size is normal. There is mild, concentric left ventricular hypertrophy. There is normal left ventricular regional wall motion. Left ventricular systolic function is in the normal range with an ejection fraction of 55-60%. Right ventricle cavity is normal. Right ventricular systolic function is normal. There is no hemodynamically significant valve disease. There is mild left atrial enlargement. Left Ventricle Left ventricle cavity size is normal. There is mild concentric hypertrophy. Systolic function is normal with an ejection fraction of 55-60%. There are no regional LV wall motion abnormalities. Indeterminate diastolic function. Left atrial pressure is inconclusive. Right Ventricle Right ventricle cavity appears normal. Systolic function is normal. Left Atrium Left atrium volume index is mildly increased. There is right to left atrial septal bowing. No clear PFO is noted however. Right Atrium Right atrium cavity is normal. IVC/SVC RA pressures is estimated to be 3 mmHg (IVC diameter <21 mm and decreases >50% during inspiration). Mitral Valve The leaflets are mildly thickened. There is mild annular calcification. There is trace regurgitation. There is no evidence of mitral valve stenosis. Tricuspid Valve The leaflets exhibit normal excursion. There is trace regurgitation. There is no evidence of tricuspid valve stenosis. Cannot assess RVSP. Aortic Valve The aortic valve is trileaflet. The leaflets are mildly calcified. There is trace regurgitation. There is no evidence of aortic valve stenosis. Pulmonic Valve Visualized portions of the pulmonic valve appear normal. There is trace pulmonic valve regurgitation. There is no evidence of pulmonic valve stenosis. Ascending Aorta The aortic root and ascending aorta are likely upper normal in size for age and body surface area. Pericardium Pericardium appears normal. Study Details Overall the study quality was adequate. Rodrigo GOMES CV ECHO PROCEDURES Final Result * CARDIAC HOLTER MONITOR (REPORT GENERATED IN HOUSE) (01/25/2025 9:07 AM EDT) Anatomical Region Laterality Modality Cardiac Diagnost ic Narrative 01/26/2025 4:53 PM EDT [facility] DIAGNOSTIC TESTING DEPARTMENT [address] [place] [address], [address] [address] TEL: FAX: Type of Test: 24 Hour Holter Monitor Date of Test: 01/25/2025 Ordering Provider: ELISEO Vargas Reason for Test: Hyperparathyroidism; Cognitive impairment; Hyperlipidemia, unspecified hyperlipidemia type; Secondary hypertension; Late effect of stroke; Microalbuminuria; Type 2 diabetes mellitus with other diabetic kidney complication, with long-term current use of insulin; Partial seizure; Vitamin B12 deficiency; Palpitation Findings: 1: Normal Sinus Rhythm. Average heart rate was 68 bpm. 2: Frequent PACs. Occasional atrial pairs, atrial bi/trigeminy, and atrial runs lasting up to 5 beats with rates up to 171 bpm. Overall atrial ectopic burden was 7.2% of all beats. 3: Occasional PVCs. Rare couplets/triplets and two runs of nonsustained VT with rates up to 162 bpm. Longest run of nonsustained VT lasted 41 beats; approximately 16 seconds in duration. Overall ventricular ectopic burden was 0.4%. 4: No significant pauses noted, longest R-R was 1.7 seconds at 4:47 AM. 5: Diary returned with an entry questioning feeling palpitations. EKG at that time showed Normal Sinus Rhythm with isolated PACs and PVCs. Heart rates were in the range of 84-89 bpm. Impression: 1. Episodes of nonsustained VT. The longest episode was 41 beats lasting approximately 16 seconds in duration. These were reportedly asymptomatic. In reviewing morphologies, the predominant morphology and the morphology of the longer runs of nonsustained VT appears to be an RV outflow tract with inferior axis and left bundle branch block appearance. 2. Frequent atrial ectopy as above. Overall atrial ectopic burden was 7.2% of all beats. 3. Patient's symptoms mainly correlated to sinus rhythm with isolated APCs or PVCs. Rodrigo GOMES CV CARDIAC SERVICES [facility] Final Result * CT Head wo Contrast (01/11/2025 10:32 AM EDT) Anatomical Region Laterality Modality Head and Neck Computed Tomogra phy 01/11/2025 10:3 4 AM EDT Impressions 01/11/2025 10:41 AM EDT No acute intracranial pathology. Unchanged chronic findings as described. -------- FINAL REPORT -------- Dictated By: Damaris Beebe Dictated Date: 01/11/2025 10:34 ET Assigned Physician: Damaris Beebe Reviewed and Electronically Signed By: Damaris Beebe Signed Date: 01/11/2025 10:41 ET Workstation ID: [id number] Transcribed By: Self Edit Transcribed Date: 01/11/2025 10:34 ET Narrative 01/11/2025 10:[address] HEAD WO CONTRAST HISTORY: Chronic headache. New features or increased frequency headache. New onset. History stroke. TECHNIQUE: Contiguous axial images were obtained from the skull base to the vertex without contrast. PRIOR STUDIES: CT brain 04/20/2023. FINDINGS: There is no acute intracranial hemorrhage. The reece/white matter differentiation is preserved. Old left occipital and left temporal lobe infarcts are unchanged. Extensive decreased attenuation of the periventricular and deep white matter bilaterally, consistent with chronic small vessel ischemic disease, is unchanged. Prominent sulci consistent with age-related atrophy are not significantly changed. The basal cisterns are patent. There is no mass effect or midline shift. There are no intra or extra-axial fluid collections identified. No skull fractures are seen. The visualized paranasal sinuses and mastoid air cells are clear. There appears to be an empty sella. Procedure Note Damaris Beebe MD - 01/11/2025 CT HEAD WO CONTRAST HISTORY: Chronic headache. New features or increased frequency headache.New onset. History stroke. TECHNIQUE: Contiguous axial images were obtained from the skull base tothe vertex without contrast. PRIOR STUDIES: CT brain 04/20/2023. FINDINGS: There is no acute intracranial hemorrhage. The reece/white matterdifferentiation is preserved. Old left occipital and left temporal lobe infarcts are unchanged.Extensive decreased attenuation of the periventricular and deep whitematter bilaterally, consistent with chronic small vessel ischemic disease,is unchanged. Prominent sulci consistent with age-related atrophy are not significantlychanged. The basal cisterns are patent. There is no mass effect or midline shift.There are no intra or extra-axial fluid collections identified. No skull fractures are seen. The visualized paranasal sinuses and mastoidair cells are clear. There appears to be an empty sella. IMPRESSION: No acute intracranial pathology. Unchanged chronic findings asdescribed. -------- FINAL REPORT -------- Dictated By: Damaris Beebe Dictated Date: 01/11/2025 10:34 ET Assigned Physician: Damaris Beebe Reviewed and Electronically Signed By: Damaris Beebe Signed Date: 01/11/2025 10:41 ET Workstation ID: [id number] Transcribed By: Self Edit Transcribed Date: 01/11/2025 10:34 ET Rodrigo GOMES IMG CT PROCEDURES Final R esult * External Diabetic Retina Eye Exam Report (01/10/2025) Anatomical Region Laterality Modality Ultrasound Provider [facility] US PROCEDURES Final Result * Thyroid stimulating hormone with reflex to free t4 and free t3 (01/09/2025 12:13 PM EDT) [facility] TSH 0.92 0.40 - 4.00 mcIU/mL LAB CHEMISTRY METHOD 01/09/2025 4:54 PM EDT [facility] Blood Venous blood specimen / Unknown Venipuncture / Unknown 01/09/2025 12:13 PM EDT 01/09/2025 12:13 PM EDT Rodrigo GOMES LAB BLOOD ORDERABLES Marina l Result [facility] [address] [place] [address], [place] [phone] * Lipid panel with reflex to direct LDL (01/09/2025 12:13 PM EDT) [facility] Cholesterol 99 0 - 200 mg/dL LAB CHEMISTRY METHOD 01/09/2025 3:29 PM EDT [facility] Triglycerides 54 0 - 150 mg/dL LAB CHEMISTRY METHOD 01/09/2025 3:29 PM EDT [facility] HDL 44 >=40 mg/dL LAB CHEMISTRY METHOD 01/09/2025 3:29 PM EDT [facility] LDL Calculated 44 0 - 100 mg/dL LAB CHEMISTRY METHOD 01/09/2025 3:29 PM EDT [facility] VLDL Cholesterol Femi 10.8 mg/dL LAB CHEMISTRY METHOD 01/09/2025 3:29 PM EDT [facility] Non HDL Chol. (LDL+VLDL) 55 <145 mg/dL LAB CHEMISTRY METHOD 01/09/2025 3:29 PM EDT [facility] Chol/HDL Ratio 2.3 0.0 - 4.4 LAB CHEMISTRY METHOD 01/09/2025 3:29 PM EDT [facility] Blood Venous blood specimen / Unknown Venipuncture / Unknown 01/09/2025 12:13 PM EDT 01/09/2025 12:13 PM EDT us Rodrigo GOMES LAB BLOOD ORDERABLES Marina l Result [facility] [address] [place] [address], * (ABNORMAL) CBC auto differential (01/09/2025 12:13 PM EDT) [facility] WBC 10.4 4.8 - 10.8 K/mcL LAB HEMETOLOGY METHOD 01/09/2025 2:45 PM EDT [facility] RBC 3.90(L) 4.50 - 5.50 M/mcL LAB HEMETOLOGY METHOD 01/09/2025 2:45 PM EDT [facility] Hemoglobin 12.2(L) 13.5 - 17.5 g/dL LAB HEMETOLOGY METHOD 01/09/2025 2:45 PM EDT [facility] Hematocrit 38.3(L) 42.0 - 54.0 % LAB [facility]Y [facility] MCV 99.2(H) 79.0 - 98.0 FL LAB HEMETOLOGY METHOD 01/09/2025 2:45 PM EDT [facility] MCH 31.6 27.0 - 32.0 pcg LAB HEMETOLOGY METHOD 01/09/2025 2:45 PM EDT [facility] MCHC 31.9(L) 32.0 - 37.0 g/dL LAB HEMETOLOGY METHOD 01/09/2025 2:45 PM [facility] RDW 13.2 11.0 - 15.0 % LAB HEMETOLOGY METHOD 01/09/2025 2:45 PM EDT [facility] Platelets 238 130 - 400 K/mcL LAB HEMETOLOGY METHOD 01/09/2025 2:45 PM EDT [facility] MPV 12.8(H) 7.0 - 11.0 FL LAB HEMETOLOGY METHOD 01/09/2025 2:45 PM [facility] NRBC 0.0 <1.0 % LAB HEMETOLOGY METHOD 01/09/2025 2:45 PM EDT [facility] NRBC Absolute 0.00 <0.10 K/mcL LAB HEMETOLOGY METHOD [facility] Neutrophils Relative 70.3 % LAB HEMETOLOGY METHOD [facility] Lymphocytes Relative 20.7 % LAB HEMETOLOGY METHOD 01/09/2025 2:45 PM EDT [facility] Monocytes Relative 7.1 % LAB HEMETOLOGY METHOD 01/09/2025 2:45 PM EDT [facility] Eosinophils Relative 1.3 % LAB HEMETOLOGY METHOD 01/09/2025 2:45 PM EDT [facility] Basophils Relative 0.2 % LAB HEMETOLOGY METHOD 01/09/2025 2:45 PM EDT [facility] Immature Granulocytes Relative 0.4 % LAB HEMETOLOGY METHOD 01/09/2025 2:45 PM EDT [facility] Neutrophils Absolute 7.29(H) 1.50 - 7.00 K/mcL LAB HEMETOLOGY METHOD 01/09/2025 2:45 PM EDT [facility] Lymphocytes Absolute 2.15 1.00 - 5.00 K/mcL LAB HEMETOLOGY METHOD 01/09/2025 2:45 PM EDT [facility] Monocytes Absolute 0.74 0.20 - 1.00 K/mcL LAB HEMETOLOGY METHOD 01/09/2025 2:45 PM EDT [facility] Eosinophils Absolute 0.14 0.00 - 0.50 K/mcL LAB HEMETOLOGY METHOD 01/09/2025 2:45 PM EDT [facility] Basophils Absolute 0.02 0.00 - 0.20 K/mcL LAB HEMETOLOGY METHOD 01/09/2025 2:45 PM EDT [facility] Immature Granulocytes Absolute 0.04(H) 0.00 - 0.03 K/mcL LAB HEMETOLOGY METHOD 01/09/2025 2:45 PM EDT [facility] Blood Venous blood specimen / Unknown Venipuncture / Unknown 01/09/2025 12:13 PM EDT 01/09/2025 12:13 PM EDT Rodrigo GOMES LAB BLOOD ORDERABLES Marina l Result [facility] [address] [place] [address], [place] [phone] * (ABNORMAL) Microalbumin creatinine urine ratio (01/09/2025 12:13 PM EDT) Creatinine, Urine 158.0 mg/dL LAB CHEMISTRY METHOD 01/09/2025 4:01 PM EDT [facility] Microalb, Ur 185.0(H) 0.0 - 29.0 mg/L LAB CHEMISTRY METHOD 01/09/2025 4:01 PM EDT [facility] Microalb/Crea t Ratio 117(H) <30 mg/g creat LAB CHEMISTRY METHOD 01/09/2025 4:01 PM EDT [facility] Urine Urine specimen obtained by clean catch procedure / Unknown Non-blood Collection / Unknown 01/09/2025 12:13 PM EDT 01/09/2025 12:13 PM EDT Rodrigo GOMES LAB URINE ORDERABLES Marina l Result [facility] [address] [place] [address], [place] [phone] * Culture urine (01/09/2025 12:13 PM EDT) Culture, Urine No growth 01/10/2025 9:05 AM EDT [facility] Urine Urine specimen obtained by clean catch procedure / Unknown Non-blood Collection / Unknown 01/09/2025 12:13 PM EDT 01/09/2025 12:13 PM EDT Rodrigo GOMES LAB MICROBIOLOGY - GENERA L ORDERABLES Final Result [facility] [address] [place] [address], [place] [phone] * Parathyroid hormone intact (01/09/2025 12:13 PM EDT) PTH 58.5 18.5 - 88.0 pcg/mL LAB CHEMISTRY METHOD 01/09/2025 4:25 PM EDT [facility] Blood Venous blood specimen / Unknown Venipuncture / Unknown 01/09/2025 12:13 PM EDT 01/09/2025 12:13 PM EDT Rodrigo GOMES LAB BLOOD ORDERABLES Marina l Result Performing Organization Address City/[facility]/ZIP Co de Phone Number [facility] [address] [place] [address], [place] [phone] * Hemoglobin A1c (01/09/2025 12:13 PM EDT) [facility] Hemoglobin A1C 5.4 <6.5 % LAB CHEMISTRY METHOD 01/09/2025 9:14 PM EDT [facility] Mean Bld Glu Estim. 108 mg/dL LAB CHEMISTRY METHOD 01/09/2025 9:14 PM EDT [facility] Blood Venous blood specimen / Unknown Venipuncture / Unknown 01/09/2025 12:13 PM EDT 01/09/2025 12:13 PM EDT Rodrigo GOMES LAB BLOOD ORDERABLES Marina l Result [facility] [address] [place] [address], [place] [phone] * (ABNORMAL) Vitamin B12 (01/09/2025 12:13 PM EDT) Pathologist [facility] Vitamin B-12 1,246(H) 250 - 900 pcg/mL LAB CHEMISTRY METHOD 01/09/2025 3:29 PM EDT [facility] Blood Venous blood specimen / Unknown Venipuncture / Unknown 01/09/2025 12:13 PM EDT 01/09/2025 12:13 PM EDT Rodrigo GOMES LAB BLOOD ORDERABLES Marina l Result Performing Organization Address City/[facility]/ZIP Co de Phone Number [facility] [address] [place] [address], [place] [phone] * Valproic acid level, total (01/09/2025 12:13 PM EDT) [facility] Valproic Acid, Total 54 50 - 100 mcg/mL LAB CHEMISTRY METHOD 01/09/2025 3:29 PM EDT [facility] Blood Venous blood specimen / Unknown Venipuncture / Unknown 01/09/2025 12:13 PM EDT 01/09/2025 12:13 PM EDT Rodrigo GOMES LAB BLOOD ORDERABLES Marina l Result Performing Organization Address [facility]/ZIP Co de Phone Number [facility] [address] [place] [address], [place] [phone] * (ABNORMAL) Comprehensive metabolic panel (01/09/2025 12:13 PM EDT) [facility] Sodium 142 133 - 145 mmol/L LAB CHEMISTRY METHOD 01/09/2025 3:29 PM EDT [facility] Potassium 4.2 3.5 - 5.5 mmol/L LAB CHEMISTRY METHOD 01/09/2025 3:29 PM EDT [facility] Chloride 110 96 - 110 mmol/L LAB CHEMISTRY METHOD 01/09/2025 3:29 PM EDT [facility] CO2 27 21 - 32 mmol/L LAB CHEMISTRY METHOD 01/09/2025 3:29 PM EDT [facility] Anion Gap 5 3 - 11 LAB CHEMISTRY METHOD 01/09/2025 3:29 PM EDT [facility] Glucose 90 70 - 100 mg/dL LAB CHEMISTRY METHOD 01/09/2025 3:29 PM [facility] BUN 32(H) 5 - 25 mg/dL LAB CHEMISTRY METHOD 01/09/2025 3:29 PM [facility] Creatinine 2.14(H) 0.70 - 1.30 mg/dL LAB CHEMISTRY METHOD 01/09/2025 3:29 PM [facility] eGFR 32(L) >=60 mL/min/1. 73m2 LAB CHEMISTRY METHOD 01/09/2025 3:29 PM [facility] Comment:Calculation based on the Chronic Kidney Disease Epidemiology Collaboration (CKD-EPI) equation refit without adjustment for race. BUN/Creatinine Ratio 15.0 LAB CHEMISTRY METHOD 01/09/2025 3:29 PM [facility] Calcium 11.0(H) 8.5 - 10.5 mg/dL LAB CHEMISTRY METHOD 01/09/2025 3:29 PM [facility] AST (SGOT) 8(L) 10 - 42 unit/L LAB CHEMISTRY METHOD 01/09/2025 3:29 PM [facility] ALT (SGPT) 13 10 - 60 unit/L LAB CHEMISTRY METHOD 01/09/2025 3:29 PM [facility] Alkaline Phosphatase 57 42 - 121 unit/L LAB CHEMISTRY METHOD 01/09/2025 3:29 PM [facility] Total Protein 7.2 6.0 - 8.0 g/dL LAB CHEMISTRY METHOD 01/09/2025 3:29 PM [facility] Albumin 3.4 3.2 - 5.0 g/dL LAB CHEMISTRY METHOD 01/09/2025 3:29 PM [facility] Total Bilirubin 0.4 0.0 - 1.4 mg/dL LAB CHEMISTRY METHOD 01/09/2025 3:29 PM [facility] Blood Venous blood specimen / Unknown Venipuncture / Unknown 01/09/2025 12:13 PM EDT 01/09/2025 12:13 PM EDT Rodrigo GOMES LAB BLOOD ORDERABLES Marina l Result [facility] [address] [place] [address], [place] [phone] * ECG 12 lead Tracing Only (01/09/2025 11:56 AM EDT) Rodrigo GOMES ECG ORDERABLES Final Res ult * Falls Risk Assessment (10/20/2023) [facility] Falls Risk Assessment Abstracted [facility] Provider HEALTH MAINTENANCE Final Result * Depression Screening (10/20/2023) [facility] Depression Screening Abstracted Result [facility] Provider HEALTH MAINTENANCE Final Result * Diabetes Foot Exam (12/03/2022) [facility] Diabetes: Annual Foot Exam Abstracted Result [facility] Provider HEALTH MAINTENANCE Final Result * Colonoscopy (09/20/2019) [facility] Colonoscopy No interpreta tion,abstr acted Anatomical Region Laterality Modality Other Historical Provider HEALTH MAINTENANCE Final Result * Hepatitis C Screening (01/04/2014) [facility] Hepatitis C Screening Abstracted Result [facility] Historical Provider HEALTH MAINTENANCE Final Result from Last 3 Months or Most Recently Relevant to Health Maintenance Insurance MEDICARE MEDICAID - [place] [facility] Care Teams Superintendent Marine Relationship Specialty Start Date End Date Rodrigo Branch PA [address] [place] [address] PCP - General Internal Medicine 11/23/20
== END 2025-03-21 16:45 | disposition home or self-care (01) ==
LOC: HO.HSM 15:48
PROVIDERS: PCP Physician Assistant Medical; Visit Provider Psychiatry & Neurology Neurology
DX: F01.C18 Vascular dementia, severe, with other behavioral disturbance (principal); G40.909 Epilepsy, unspecified, not intractable, without status epilepticus; I48.91 Unspecified atrial fibrillation
CPT/HCPCS: 99204

== ENCOUNTER → 2025-03-21 15:47 | Outpatient (BNVA) | payer MEDICARE, SELFPAY | PROVIDERS: PCP Physician Assistant Medical; Visit Provider Psychiatry & Neurology Neurology | DX: F01.C18 Vascular dementia, severe, with other behavioral disturbance (principal); G40.909 Epilepsy, unspecified, not intractable, without status epilepticus | CPT/HCPCS: 99202 ==